=== PATIENT | male | born 1980 | race African-American/Black ===

== ENCOUNTER 2017-09-04 17:18 | Emergency (ER) | payer BC ==
[~2017-09-04] VITALS: Ht 177.8 cm; Wt 79.8 kg
[2017-09-04 17:20] VITALS: BP 133/76
[2017-09-04] MEDS ORDERED: DIPHTH,PERTUSS(ACELL),TET TOX 0.5 ML DISP.SYRIN. VAX IM ONE (17:45)
--- NOTE | 2017-09-04 17:54 | PHYS DOC ---
Past Medical History Past Medical History: No Pertinent History Past Surgical History: No Surgical History Alcohol Use: None Drug Use: None Adult General Chief Complaint Chief Complaint: LACERATION/AVULSION HPI HPI Patient is a 36 year old male who presents with left thumb laceration that occurred early this morning. Patient states he cut himself accidentally with a knife. He is ambidextrous. Review of Systems Review of Systems Constitutional: Denies fever or chills [] Musculoskeletal: Denies back pain or joint pain [] Integument: Left thumb laceration Neurologic: Denies headache, focal weakness or sensory changes [] All other systems were reviewed and found to be within normal limits, except as documented in this note. Current Medications Current Medications Current Medications Medications (Trade) Dose Ordered Sig/Alena Start Time Stop Time Status Last Admin Dose Admin Diphtheria/ Tetanus/Acell Pertussis (Boostrix) 0.5 ml ONCE ONCE 09/04/17 17:45 09/04/17 17:46 DC Allergies Allergies Allergies Coded Allergies Type Severity Reaction Last Updated Verified No Known Drug Allergies 09/04/17 No Physical Exam Physical Exam Constitutional: Well developed, well nourished, no acute distress, non-toxic appearance. [] Skin: Warm, dry, left distal lateral thumb with a superficial laceration approximately 1.5 cm. There is no tendon involvement, there is no bleeding. Full range of motion to the left thumb including flexion and extension at the DIP joint. +2 left radial pulse. Adequate radius sensation to the left thumb. Cap refill less than 2 seconds the left thumb. Back: No tenderness, no CVA tenderness. [] Extremities: No tenderness, no cyanosis, no clubbing, ROM intact, no edema. [] Neurologic: Alert and oriented X 3, normal motor function, normal sensory function, no focal deficits noted. [] Psychologic: Affect normal, judgement normal, mood normal. [] Current Patient Data Vital Signs Vital Signs Date Time Temp Pulse Resp B/P (MAP) Pulse Ox O2 Delivery O2 Flow Rate FiO2 09/04/17 17:20 97.9 67 16 99 Room Air 97.9 EKG EKG [] Radiology/Procedures Radiology/Procedures [] Course & Med Decision Making Course & Med Decision Making Pertinent Labs and Imaging studies reviewed. (See chart for details) Patient has left thumb laceration that occurred this morning. The laceration does not need suturing. Recommended Neosporin to the area. Tetanus updated. Provided wound instructions and return precautions. Dragon Disclaimer Dragon Disclaimer This electronic medical record was generated, in whole or in part, using a voice recognition dictation system. Departure Departure Impression: Primary Impression: Laceration of left thumb Disposition: HOME, SELF-CARE Condition: STABLE Patient Instructions: Laceration Care, Adult Additional Instructions: You were seen with left thumb laceration. Keep it clean and dry. You can wash the area with soap and water. Apply Neosporin to the area twice a day. Cover it with a Band-Aid if it's bleeding or draining otherwise live it open to air. Monitor the area for signs and symptoms of infection including increased redness to the area, yellow drainage from the area, increased warmth to the area , and return to the ED if they occur or see your doctor. Problem Qualifiers Primary Impression: Laceration of left thumb Encounter type: initial encounter Damage to nail status: without damage Foreign body presence: without foreign body Qualified Codes: S61.012A - Laceration without foreign body of left thumb without damage to nail, initial encounter JOSELYN NORRIS [employer] Sep 04, 2017 17:54
== END 2017-09-04 18:00 | disposition home or self-care (01) ==
LOC: ER 17:18
DX: S61.012A Laceration without foreign body of left thumb without damage to nail, initial encounter (principal); W26.0XXA Contact with knife, initial encounter; Y93.89 Activity, other specified; Y99.8 Other external cause status; Y92.89 Other specified places as the place of occurrence of the external cause
CPT/HCPCS: 90471; 90715; 99283-25